=== PATIENT | female | born 1975 ===

== ENCOUNTER 2019-04-03 08:27 | Observation (INO) ==
[2019-04-03 09:11] LABS: Hematocrit 38.4 % (35.3-44.9); Hemoglobin 12.4 g/dL (11.5-15.4); Mean Corpuscular HGB Conc 32.3 g/dL (31.6-35.5); Mean Corpuscular Hemoglobin 28.8 pg (28.0-33.3); Mean Corpuscular Volume 89.3 fL (83.0-100.0); Mean Platelet Volume 9.3 fL (9.4-12.4); Platelet Count 227 K/mcL (140-400); Red Cell Distribution Width 16.5 % (11.5-14.5)
[2019-04-03 09:18] LABS: INR 1.2; Prothrombin Time 13.6 Seconds (9.4-12.1)
[2019-04-03 09:21] LABS: Activated Partial Thrombo Time 31.8 Seconds (26.0-36.0)
[2019-04-03 09:33] LABS: BUN/Creatinine Ratio 13 (6-26); Blood Urea Nitrogen 9 mg/dL (6-20); Calcium 8.7 mg/dL (8.6-10.3); Carbon Dioxide 21 mEq/L (23-29); Chloride 115 mEq/L (98-107); Glucose 84 mg/dL (70-105); Osmolality,Calculated 288 (280-300); Potassium 3.8 mEq/L (3.5-5.1); Sodium 140 mEq/L (136-145); eGFR For African Americans > 60 (> 60); eGFR For Non-African Americans > 60 (> 60)
[2019-04-03] MEDS ORDERED: *HR* LORazepam 0.5 MG TABLET PO ONE (09:33)
[2019-04-03 09:34] LABS: Troponin I < 0.03 ng/mL (< 0.04)
[2019-04-03] MEDS ORDERED: Aspirin 325 MG TABLET PO ONE (10:26)
[2019-04-03] MEDS ORDERED: 0.9 % Sodium Chloride 1,000 ML IVC ONE (12:04)
[2019-04-03 12:45] LABS: Bilirubin,Urine Negative (Negative); Blood,Urine Negative (Negative); Clarity,Urine Turbid (Clear); Color,Urine Yellow (Yellow); Glucose,Urine (UA) Normal (Normal); Ketones,Urine Negative (Negative); Leukocyte Esterase,Urine Negative (Negative); Nitrite,Urine Negative (Negative); PH,Urine 7.5 pH Units (5.0-8.0); Protein,Urine Negative (Neg-Trace); Specific Gravity,Urine 1.013 (1.010-1.025); Urobilinogen,Urine Normal (Normal)
[2019-04-03 12:47] LABS: Bacteria,Urine None Seen per hpf (None-Few); Hyaline Casts,Urine None Seen per lpf (None-Few); RBC,Urine 0-3 per hpf (0-3); Squamous Epithelial Cell,Urine Moderate per lpf (None-Few); WBC,Urine 0-3 per hpf (0-3)
[2019-04-03] MEDS ORDERED: Naloxone 0.4 MG/ML INJ IVP PRN (13:13)
[2019-04-03] MEDS ORDERED: Acetaminophen 325 MG TABLET PO PRN (13:13)
[2019-04-03] MEDS ORDERED: Ringers Solution, Lactated 1,000 ML IVC SCH (14:45)
[2019-04-03 14:56] VITALS: BP 101/66
[2019-04-03] MEDS ORDERED: Gabapentin 300 MG CAPSULE PO SCH (15:00)
[2019-04-03] MEDS ORDERED: *HR* LORazepam 0.5 MG TABLET PO SCH (15:00)
[2019-04-03] MEDS ORDERED: lamoTRIgine 25 MG TABLET PO SCH (21:00)
[2019-04-03] MEDS ORDERED: traZODone 50 MG TABLET PO SCH (21:00)
[2019-04-03] MEDS ORDERED: *HR* Heparin 5,000 UNIT/ML VIAL SQ SCH (22:00)
[2019-04-04] MEDS ORDERED: Nicotine 21 MG PATCH.TD24 TD SCH (09:00)
[2019-04-04] MEDS ORDERED: Aspirin Enteric Coated 81 MG Tablet PO SCH (09:00)
== END 2019-04-03 18:02 | disposition home or self-care (01) ==
LOC: SUATTDRO → 3BNU 08:27 → EMEROOARM 08:27 → 3BNU 13:18
PROVIDERS: ADMIT Pharmacist; ATTEND Pharmacist